=== PATIENT | female | born 1960 | race Caucasian/White ===

== ENCOUNTER → 2017-10-10 15:31 | Outpatient (CLI) | payer OTHER, SELFPAY ==
--- NOTE | 2017-10-10 15:44 | EKG12_ITS ---
Test Reason : PREOP Blood Pressure : / mmHG Vent. Rate : 058 BPM Atrial Rate : 058 BPM P-R Int : 150 ms QRS Dur : 082 ms QT Int : 400 ms P-R-T Axes : 040 058 080 degrees QTc Int : 392 ms Sinus bradycardia Low voltage QRS Septal infarct , age undetermined Abnormal ECG Confirmed by CAROL DIAMOND, EDITH ([id number]), news assignment editor FORTUNATO MCLAUGHLIN ([id number]) on 10/13/2017 1:26:22 PM Referred By: Vance Treadwell Confirmed By:EDITH MEDINA MD
== END ==
PROVIDERS: Visit Provider Urology
DX: N20.0 Calculus of kidney (principal)
CPT/HCPCS: 93005